=== PATIENT | female | born 1980 | race Caucasian/White ===

== ENCOUNTER 2021-05-12 10:54 | Outpatient (CLI) | payer BC | END 2021-05-12 11:10 | LOC: SLEEP 10:54 | PROVIDERS: ATTEND Otolaryngology Otolaryngology/Facial Plastic Surgery | DX: G47.33 Obstructive sleep apnea (adult) (pediatric) (principal) | CPT/HCPCS: G0399 ==

== ENCOUNTER 2021-07-01 05:47 | Outpatient (CLI) | payer BC | END 2021-07-06 10:37 | disposition home or self-care (01) | LOC: PREOP 05:47 | PROVIDERS: ATTEND Otolaryngology Otolaryngology/Facial Plastic Surgery | DX: Z01.818 Encounter for other preprocedural examination (principal) ==